=== PATIENT | female | born 1970 | race Two or more races ===

== ENCOUNTER → 2021-03-08 | Outpatient (CLI) | payer SELFPAY ==
--- NOTE | 2021-03-08 10:12 | RAD ---
EXAM: Sonographic guided left breast biopsy; left breast biopsy clip placement; left breast postbiops y mammogram. HISTORY: 50-year-old female presents for sonographic guided biopsy of a nodule within the left breast demonstrated on a study performed in outside facility. TECHNIQUE: The risks of the procedure discussed with the patient via an desk clerks supervisor. Written and verb al consent was obtained. A timeout was performed. Sonographic imaging of the left breast was performe d and the lesion of concern at the 3:00 position was identified. The skin in this location was steril yina prepped, draped and infiltrated with 1 percent lidocaine. A 14-gauge vacuum-assisted needle was a dvanced into the lesion and multiple core samples were obtained. A biopsy clip was deployed into the lesion. Manual compression was maintained until hemostasis was achieved. A sterile bandage was placed . A post biopsy mammogram demonstrates the biopsy clip in expected position. The patient tolerated th e procedure without complication. IMPRESSION: Successful sonographic and biopsy of a lesion within the 3:00 position of the left breast and biopsy clip placement. An addendum to this report will be submitted when pathology results are a vailable. Electronically signed by: Alexa Garrett MD (03/08/2021 10:10 AM) [id number]
--- NOTE | 2021-03-08 10:12 | RAD ---
EXAM: Sonographic guided left breast biopsy; left breast biopsy clip placement; left breast postbiops y mammogram. HISTORY: 50-year-old female presents for sonographic guided biopsy of a nodule within the left breast demonstrated on a study performed in outside facility. TECHNIQUE: The risks of the procedure discussed with the patient via an diplomatic interpreter. Written and verb al consent was obtained. A timeout was performed. Sonographic imaging of the left breast was performe d and the lesion of concern at the 3:00 position was identified. The skin in this location was steril yina prepped, draped and infiltrated with 1 percent lidocaine. A 14-gauge vacuum-assisted needle was a dvanced into the lesion and multiple core samples were obtained. A biopsy clip was deployed into the lesion. Manual compression was maintained until hemostasis was achieved. A sterile bandage was placed . A post biopsy mammogram demonstrates the biopsy clip in expected position. The patient tolerated th e procedure without complication. IMPRESSION: Successful sonographic and biopsy of a lesion within the 3:00 position of the left breast and biopsy clip placement. An addendum to this report will be submitted when pathology results are a vailable. Electronically signed by: Alexa Garrett MD (03/08/2021 10:10 AM) [id number]
--- NOTE | 2021-03-13 14:46 | RAD ---
EXAM: Sonographic guided left breast biopsy; left breast biopsy clip placement; left breast postbiopsy mammogram. HISTORY: 50-year-old female presents for sonographic guided biopsy of a nodule within the left breast demonstrated on a study performed in outside facility. TECHNIQUE: The risks of the procedure discussed with the patient via an smoke jumper supervisor. Written and verbal consent was obtained. A timeout was performed. Sonographic imaging of the left breast was performed and the lesion of concern at the 3:00 position was identified. The skin in this location was sterilely prepped, draped and infiltrated with 1 percent lidocaine. A 14-gauge vacuum- assisted needle was advanced into the lesion and multiple core samples were obtained. A biopsy clip was deployed into the lesion. Manual compression was maintained until hemostasis was achieved. A sterile bandage was placed. A post biopsy mammogram demonstrates the biopsy clip in expected position. The patient tolerated the procedure without complication. IMPRESSION: Successful sonographic and biopsy of a lesion within the 3:00 position of the left breast and biopsy clip placement. An addendum to this report will be submitted when pathology results are available. Electronically signed by: Alexa Garrett MD (03/08/2021 10:10 AM) [id number]
== END | disposition home or self-care (01) ==
LOC: US 08:28
PROVIDERS: ATTEND Nurse Practitioner Women's Health
DX: R92.8 Other abnormal and inconclusive findings on diagnostic imaging of breast (principal); N63.21 Unspecified lump in the left breast, upper outer quadrant; Z79.899 Other long term (current) drug therapy
CPT/HCPCS: 19083; 76942; 77065; 88305